=== PATIENT | female | born 1990 | race Caucasian/White ===

== ENCOUNTER 2017-05-04 13:37 | Emergency (ER) | payer OTHER, SELFPAY ==
[2017-05-04 14:00] VITALS: BP 143/98; PULSE 69; RESP 20; TEMP 36.7; O2SAT 99; BMI 28.3
--- NOTE | 2017-05-04 14:51 | HMH.EDUTC ---
[facility] [place] Disposition Clinical Impression: Sinusitis Qualifiers: Sinusitis location: unspecified location Chronicity: unspecified Qualified Code(s): J32.9 - Chronic sinusitis, unspecified Disposition: Home, Self-Care Condition on Discharge: Good Instructions: Sinusitis, Sinus Headache, DI for Sinusitis Additional Instructions: Start antibiotic. Sinus infections may take 2-3 days to notice much improvement so be sure to use conservative measures as discussed for symptoms Flonase 2 spray in each nostril daily to help with nasal congestion, sinus an ear pressure/inflammation Lots of Fluids Sleep elevated Humidifer/vaporizer Prescriptions: Doxycycline Monohydrate 100 mg PO BID #14 cap Fluticasone Propionate [Flonase 50mcg nasal spray 16gm] 2 spr NS DAILY #1 bottle Forms: Work/School Release Time of Disposition: 15:02 Medical Decision Making - Medical Records Medical records reviewed: Yes: I reviewed the patient's medical records. Vital Signs: 05/04/17 14:00 Temperature 98.1 F Temperature Source Temporal Artery Scan Pulse Rate [Brachial] 69 Respiratory Rate 20 Blood Pressure [Right Arm] 143/98 Blood Pressure Mean [Right Arm] 113 Blood Pressure Source [Right Arm] Automatic Cuff Blood Pressure Position [Right Arm] Sitting 02 Sat by Pulse Oximetry 99 Oxygen Delivery Method Room Air - Lab Data Lab results reviewed: Yes: I reviewed the patient's lab results. - Mike Inquiry Pt receiving controlled substance: No Mike was queried for this patient: No [facility] [place] HPI - General Stated complaint: sinus Mode of Arrival: Ambulatory Source of Information: Patient Limitations: No Limitations Description of Symptoms (Recalled from Triage Doc. by RN): NASAL CONGESTION SINCE Thu Symptoms (Recalled from RN notes): Yes Resp Symptoms (Recalled from RN notes): No Skin Symptoms (Recalled from RN notes): No MS Symptoms (Recalled from RN notes): No Functional Status (Recalled from RN notes): NA - History of Present Illness Provider Complaint: Patient state that she has been having sinus pain and pressure now for over a week States that she is not sure if she had a fever or not State that she has been tender under her eyes and feeling pressure State that today she has a little sinus headache so she came in to get checked out - Related Data Home Medications Medication Instructions Recorded Confirmed Escitalopram Oxalate 10 mg PO DAILY 05/04/17 05/04/17 Ethynodiol D-Ethinyl Estradiol 1 mg PO DAILY 05/04/17 05/04/17 [Kelnor 1-35 28 Tablet] Previous Rx's Medication Instructions Recorded Doxycycline Monohydrate 100 mg PO BID #14 cap 05/04/17 Fluticasone Propionate [Flonase 2 spr NS DAILY #1 bottle 05/04/17 50mcg nasal spray 16gm] Allergies Allergy/AdvReac Type Severity Reaction Status Date / Time Penicillins Allergy Intermediate Verified 05/04/17 14:04 sulfamethoxazole Allergy Intermediate Verified 05/04/17 14:05 [From Bactrim] trimethoprim [From Bactrim] Allergy Intermediate Verified 05/04/17 14:05 codeine Allergy Verified 05/04/17 14:04 - Worker's Comp Is this a Worker's Comp case?: No [facility] History I have reviewed the patient's past medical history: Yes - Social History Alcohol Intake: never - Psychiatric History Expresses thoughts of harming self/others: None Suicide Plan Description: No Plan ROS Obtained: Yes All systems reviewed & no additional complaints - ENT Ears, Nose, Mouth, and Throat: Reports sinus pain, Reports sinus pressure Physical Exam - General General appearance: alert, in no apparent distress - Expanded ENT Exam Nose exam: Present: sinus tenderness, other (tenderness noted frontal and maxillary sinus, reports thick drainage ) - Respiratory Respiratory exam: Present: normal lung sounds bilaterally. Absent: respiratory distress - Cardiovascular Cardiovascular exam: Present: regular rate, normal rhythm. Absent: JVD - Abdominal Exam Abdominal
--- NOTE | 2017-05-04 14:55 | ED_ITS ---
[facility] [place] Disposition Clinical Impression: Sinusitis Qualifiers: Sinusitis location: unspecified location Chronicity: unspecified Qualified Code (s): J32.9 - Chronic sinusitis, unspecified Disposition: Home, Self-Care Condition on Discharge: Good Instructions: Sinusitis, Sinus Headache, DI for Sinusitis Additional Instructions: Start antibiotic. Sinus infections may take 2-3 days to notice much improvement so be sure to use conservative measures as discussed for symptoms Flonase 2 spray in each nostril daily to help with nasal congestion, sinus an ear pressure/inflammation Lots of Fluids Sleep elevated Humidifer/vaporizer Prescriptions: Doxycycline Monohydrate 100 mg PO BID #14 cap Fluticasone Propionate [Flonase 50mcg nasal spray 16gm] 2 spr NS DAILY #1 bottle Forms: Work/School Release Time of Disposition: 15:02 Medical Decision Making - Medical Records Medical records reviewed: Yes: I reviewed the patient's medical records. Vital Signs: 05/04/17 14:00 Temperature 98.1 F Temperature Source Temporal Artery Scan Pulse Rate [Brachial] 69 Respiratory Rate 20 Blood Pressure [Right Arm] 143/98 Blood Pressure Mean [Right Arm] 113 Blood Pressure Source [Right Arm] Automatic Cuff Blood Pressure Position [Right Arm] Sitting 02 Sat by Pulse Oximetry 99 Oxygen Delivery Method Room Air - Lab Data Lab results reviewed: Yes: I reviewed the patient's lab results. - Mike Inquiry Pt receiving controlled substance: No Mike was queried for this patient: No [facility] [place] HPI - General Stated complaint: sinus Mode of Arrival: Ambulatory Source of Information: Patient Limitations: No Limitations Description of Symptoms (Recalled from Triage Doc. by RN): NASAL CONGESTION SINCE Thu Symptoms (Recalled from RN notes): Yes Resp Symptoms (Recalled from RN notes): No Skin Symptoms (Recalled from RN notes): No MS Symptoms (Recalled from RN notes): No Functional Status (Recalled from RN notes): NA - History of Present Illness Provider Complaint: Patient state that she has been having sinus pain and pressure now for over a week States that she is not sure if she had a fever or not State that she has been tender under her eyes and feeling pressure State that today she has a little sinus headache so she came in to get checked out - Related Data Home Medications Medication Instructions Recorded Confirmed Escitalopram Oxalate 10 mg PO DAILY 05/04/17 05/04/17 Ethynodiol D-Ethinyl Estradiol 1 mg PO DAILY 05/04/17 05/04/17 [Kelnor 1-35 28 Tablet] Previous Rx's Medication Instructions Recorded Doxycycline Monohydrate 100 mg PO BID #14 cap 05/04/17 Fluticasone Propionate [Flonase 2 spr NS DAILY #1 bottle 05/04/17 50mcg nasal spray 16gm] Allergies Allergy/AdvReac Type Severity Reaction Status Date / Time Penicillins Allergy Intermediate Verified 05/04/17 14:04 sulfamethoxazole Allergy Intermediate Verified 05/04/17 14:05 [From Bactrim] trimethoprim [From Bactrim] Allergy Intermediate Verified 05/04/17 14:05 codeine Allergy Verified 05/04/17 14:04 - Worker's Comp Is this a Worker's Comp case?: No [facility] History I have reviewed the patient's past medical history: Yes - Social History Alcohol Intake: never - Psychiatric History Expresses
[2017-05-04 15:15] VITALS: BP 143/98; PULSE 69; RESP 20; TEMP 36.7; O2SAT 99
== END 2017-05-04 15:17 | disposition home or self-care (01) ==
PROVIDERS: Emergency Provider Nurse Practitioner
DX: J32.9 Chronic sinusitis, unspecified (principal); Z88.0 Allergy status to penicillin; Z88.2 Allergy status to sulfonamides; Z88.6 Allergy status to analgesic agent
CPT/HCPCS: 99202

== ENCOUNTER → 2017-09-28 15:57 | Outpatient (CLI) | payer OTHER, SELFPAY ==
[2017-09-28 18:43] LABS: Anion Gap 11.5 mEq/L (5-15); Carbon Dioxide 28 mmol/L (21.0-32.0); Chloride 107 mmol/L (98-107); Potassium 4.5 mmoL/L (3.5-5.1); Sodium 142 mmol/L (136-145)
[2017-09-28 19:00] LABS: Alanine Aminotransferase 34 U/L (12-78); Albumin Level 3.8 gm/dL (3.4-5.0); Albumin/Globulin Ratio 1.1 (1.1-1.8); Alkaline Phosphatase 56 U/L (46-116); Aspartate Amino Transferase 26 U/L (15-37); Bilirubin,Total 0.3 mg/dL (0.2-1.0); Blood Urea Nitrogen 19 mg/dL (7-18); Calcium 8.9 mg/dL (8.5-10.1); Chol/HDL Ratio 2.8 (1-3.5); Cholesterol 187 mg/dL (140-200); Creatinine,Serum 1.03 mg/dL (0.55-1.02); Estimated Glomerular Filt Rate 65 ml/min (>60); GFR (African American) 78 ML/MIN (>60); Globulin 3.5 gm/dl (1.3-3.2); Glucose 82 mg/dL (74-106); HDL Cholesterol 68 mg/dL (29-89); LDL Cholesterol 97 mg/dL (0-130); Total Protein,Serum 7.3 gm/dL (6.4-8.2); Triglycerides 108 mg/dL (30-200); VLDL Cholesterol 22 mg/dL (0-40)
== END ==
PROVIDERS: Visit Provider Nurse Practitioner Family
DX: Z00.00 Encounter for general adult medical examination without abnormal findings (principal)
CPT/HCPCS: 36415; 80053; 80061

== ENCOUNTER → 2019-09-30 11:57 | Outpatient (CLI) | payer OTHER, SELFPAY ==
[2019-09-30 14:23] LABS: Coronavirus 19 IgG Antibody Negative (Negative); Coronavirus 19 IgM Antibody Negative (Negative)
== END ==
PROVIDERS: Visit Provider Nurse Practitioner Family
DX: Z20.828 Contact with and (suspected) exposure to other viral communicable diseases (principal)
CPT/HCPCS: 36415; 86328

== ENCOUNTER 2020-08-07 08:16 | Emergency (ER) | payer OTHER, SELFPAY ==
[2020-08-07] VITALS (7 sets, daily range): BP systolic 113–141; BP diastolic 71–98; PULSE 70–144; RESP 16–18; TEMP 36.8–37.1; O2SAT 93–98; BMI 30.2
--- NOTE | 2020-08-07 08:35 | PC.NURSE ---
notified ER of pt HR
[2020-08-07 08:40] LABS: Adenovirus F 40/41, stool Not Detected (NotDetected); Astrovirus Not Detected (NotDetected); Campylobacter Not Detected (NotDetected); Cryptosporidium Not Detected (NotDetected); Cyclospora Cayetanesis Not Detected (NotDetected); Entamoeba histolytica Not Detected (NotDetected); Enteroaggregative E coli Not Detected (NotDetected); Enteropathogenic E coli Not Detected (NotDetected); Enterotoxigenic E coli Not Detected (NotDetected); Giardia lamblia Not Detected (NotDetected); Microscopic, Urine URINE MICROSCOPIC (MICROSCOPIC); Plesimonas Shigalloides, PCR Not Detected (NotDetected); Rotavirus A Not Detected (NotDetected); Salmonella, PCR Not Detected (NotDetected); Sapovirus Not Detected (NotDetected); Shiga-like toxin E coli Not Detected (NotDetected); Shigella Enterovasive E coli Not Detected (NotDetected); Vibrio Cholerae Not Detected (NotDetected); Vibrio, PCR Not Detected (NotDetected); Yersinia Entercolitica, PCR Not Detected (NotDetected)
[2020-08-07 08:42] LABS: Appearance,Urine CLEAR (Clear); Blood, Urine 1+ (Negative); Color,Urine YELLOW (Yellow); Glucose,Urine (UA) Negative (Negative); Ketones,Urine 1+ (Negative); Leukocyte Esterase,Urine Negative (Negative); Nitrate,Urine Negative (Negative); PH,Urine 5.5 (5.0-8.5); Protein,Urine 1+ (Negative); Specific Gravity, Urine >= 1.030 (1.005-1.030); Urobilinogen,Urine 0.2 EU/dl (0.2)
[2020-08-07 08:45] LABS: Bilirubin,Urine 1+ (Negative)
--- NOTE | 2020-08-07 08:45 | HMH.EDGENADL ---
ED Disposition Clinical Impression: Vomiting and diarrhea Disposition: Home, Self-Care Condition on Discharge: Good Instructions: DI for Diarrhea and Traveler's Diarrhea -- Adult, Nausea and Vomiting-Adult Prescriptions: Vancomycin HCl 125 mg PO QID 10 Days #40 cap Transmission Status: Pending to [place] [id number] Ondansetron [Zofran 4mg ODT] 4 mg PO Q6 PRN #12 tab PRN Reason: Nausea And Vomiting Transmission Status: Received by [place] [id number] Referrals: Francie Sarmiento APRN [Primary Care Provider] - Forms: Work/School Release Time of Disposition: 10:09 - Critical Care Critical Care Time: No Attestation: On , the high probability of a clinically significant, sudden or life threatening deterioration of the following system(s) required my full and direct attention, intervention and personal management. The time I documented below is in addition to time spent performing reported procedures but includes the following listed in this critical care notation. Medical Decision Making - Medical Records Medical records reviewed: Yes: I reviewed the patient's medical records. - Mike Inquiry Pt receiving controlled substance: No Vital Signs: 08/07/20 08:17 08/07/20 08:26 08/07/20 08:30 Temperature 98.8 F Temperature Source Oral Pulse Rate 144 H 136 H Pulse Rate [Right Radial] 139 H Respiratory Rate 18 Blood Pressure 126/81 141/98 H Blood Pressure [Right Arm] 126/87 Blood Pressure Mean 97 109 Blood Pressure Mean [Right Arm] 100 Blood Pressure Source Blood Pressure Source [Right Arm] Automatic Cuff Blood Pressure Position Blood Pressure Position [Right Arm] Sitting 02 Sat by Pulse Oximetry 96 Oxygen Delivery Method Room Air 08/07/20 08:45 08/07/20 09:00 08/07/20 09:30 Temperature Temperature Source Pulse Rate 117 H 106 H 96 H Pulse Rate [Right Radial] Respiratory Rate Blood Pressure 115/83 113/71 Blood Pressure [Right Arm] Blood Pressure Mean 93 85 Blood Pressure Mean [Right Arm] Blood Pressure Source Blood Pressure Source [Right Arm] Blood Pressure Position Blood Pressure Position [Right Arm] 02 Sat by Pulse Oximetry 93 L 96 97 Oxygen Delivery Method 08/07/20 11:01 Temperature 98.3 F Temperature Source Oral Pulse Rate 70 Pulse Rate [Right Radial] Respiratory Rate 16 Blood Pressure 113/74 Blood Pressure [Right Arm] Blood Pressure Mean Blood Pressure Mean [Right Arm] Blood Pressure Source Automatic Cuff Blood Pressure Source [Right Arm] Blood Pressure Position Sitting Blood Pressure Position [Right Arm] 02 Sat by Pulse Oximetry Oxygen Delivery Method Room Air - Lab Data Lab Results 08/07/20 08:25: Urine Color Yellow, Urine Appearance Clear, Urine pH 5.5, Ur Specific [place] >= 1.030, Urine Protein 1+, Urine Glucose (UA) Negative, Urine Ketones 1+, Urine Blood 1+, Urine Nitrate Negative, Urine Bilirubin 1+ A, Urine Urobilinogen 0.2, Ur Leukocyte Esterase Negative, Urine RBC 5-10, Urine WBC 3-5, Ur Squamous Epith Cells 3-5, Urine Bacteria None 08/07/20 08:25: Stl Aeromonas (PCR) Not detected, Stl C. cayetanensis PCR Not detected, Stool Rotavirus (PCR) Not detected, Stl Adenov F 40/41 PCR Not detected, Stool Astrovirus (PCR) Not detected, Stool Campylobacter PCR Not detected, Stl C.difficile Tox PCR Detected A, Stool Cryptosporidium PCR Not detected, Stl E.coli Shiga Tox PCR Not detected, Stool E coli O157 PCR Not detected, Stl Enterotoxigenic E PCR Not detected, Stool EPEC (PCR) Not detected, Stool EAEC (PCR) Not detected, Stl E. histolytica PCR Not detected, Stool Giardia Lamblia PCR Not detected, Stool Salmonella PCR Not detected, Stool Sapovirus (PCR) Not detected, Stl P. shigelloides PCR Not detected, Stl Shigella/EIEC PCR Not detected, St Y.enterocolitica PCR Not detected, Stool Vibrio (PCR) Not detected, Stl Vibrio cholerae PCR Not detected, Stl Norovirus GI/GII PCR Detected A 08/07/20 08:30: WBC 8.6, RBC 5.08,
[2020-08-07 08:48] LABS: Urine Pregnancy, HCG Qual. Negative (Negative)
[2020-08-07 08:50] LABS: Chloride 106 mmol/L (98-107); Potassium 3.8 mmoL/L (3.5-5.1); Sodium 143 mmol/L (136-145)
[2020-08-07 08:52] LABS: Basophils % 0.1 % (0.1-2.0); Eosinophils # 0.1 K/mm3 (0.0-0.4); Hematocrit 43.8 % (37.0-47.0); Lymphocytes # 0.3 K/mm3 (0.7-4.5); Mean Corpuscular HGB Conc 34.3 g/dL (31.8-35.4); Mean Corpuscular Hemoglobin 29.6 pg (27.0-31.2); Mean Corpuscular Volume 86.2 fl (81-99); Mean Platelet Volume 7.4 fl (7.4-10.4); Monocytes # 0.3 K/mm3 (0.1-1.0); Monocytes % 3.1 % (1.7-9.3); Neutrophils # 7.9 K/mm3 (1.8-7.8); Neutrophils % 92.8 % (37.0-80.0); Platelet Count 268 K/mm3 (142-424); Red Blood Count 5.08 M/mm3 (4.20-5.40); Red Cell Distribution Width 13.6 % (11.5-17.5); White Blood Count 8.6 K/mm3 (4.8-10.8)
[2020-08-07 08:53] LABS: Alanine Aminotransferase 94 U/L (12-78); Albumin Level 5.4 g/dl (3.5-5.0); Albumin/Globulin Ratio 1.5 (1.1-1.8); Alkaline Phosphatase 98 U/L (38-126); Anion Gap 14.8 mEq/L (5-15); Aspartate Amino Transferase 66 U/L (14-36); Bilirubin,Total 0.8 mg/dl (0.2-1.3); Blood Urea Nitrogen 17 mg/dl (7-17); Calcium 9.2 mg/dl (8.4-10.2); Carbon Dioxide 26 mmol/L (22.0-30.0); Creatinine Clearance Estimated 106 mL/min (50-200); Estimated Glomerular Filt Rate 74 ml/min (>60); GFR (African American) 90 ML/MIN (>60); Globulin 3.6 g/dL (1.3-3.2); Glucose 158 mg/dl (74-100)
[2020-08-07 08:56] LABS: Lipase 115 U/L (23-300)
[2020-08-07 09:02] LABS: MANUAL DIFFERENTIAL MANUAL DIFFERENTIAL (MANUAL DIFF)
[2020-08-07 09:38] LABS: Lymphocytes % 16 % (10-50); Monocytes % 3 % (2-9); Neutrophils % 81 % (42-76); Platelet Estimate Normal; RBC Morphology Normal; Total Cells Counted 100
[2020-08-07 12:20] LABS: Clostridium Difficile A/B, PCR Detected (NotDetected); Norovirus Detected (NotDetected)
--- NOTE | 2020-08-07 14:55 | PC.NURSE ---
waiting saloon keeper back from pt, left voicemail for pt
== END 2020-08-07 11:03 | disposition home or self-care (01) ==
PROVIDERS: Emergency Provider Emergency Medicine; PCP Nurse Practitioner Family
DX: A08.11 Acute gastroenteropathy due to Norwalk agent (principal); A04.72 Enterocolitis due to Clostridium difficile, not specified as recurrent; F41.9 Anxiety disorder, unspecified; Z88.0 Allergy status to penicillin; Z88.2 Allergy status to sulfonamides
CPT/HCPCS: 80053; 81001; 81025; 83690; 85007; 85025; 87506; 96365; 96375; 99283; J2405

== ENCOUNTER 2020-09-09 10:47 | Emergency (ER) | payer OTHER, SELFPAY ==
[2020-09-09 10:50] VITALS: BP 125/85; PULSE 72; RESP 21; TEMP 37.1; O2SAT 99; BMI 29.8
--- NOTE | 2020-09-09 11:16 | HMH.EDUTC ---
[facility] [place] Dis[place] Clinical Impression: Allergic rhinitis Qualifiers: Allergic rhinitis trigger: unspecified Allergic rhinitis seasonality: unspecified Qualified Code(s): J30.9 - Allergic rhinitis, unspecified Disposition: Home, Self-Care Condition on Discharge: Good Instructions: DI for Allergic Rhinitis, Allergic Rhinitis Additional Instructions: *Monitor Temp, Over the counter Motrin or Tylenol as directed/as needed Tylenol every 4 hours and Motrin every 6 hours (as long as your family doctor has told you that you can take it) for fever or pain. and straight to ER if unable to lower temp less than 101.0 after medication given *Warm salt water gargles may help to soothe the throat *Throat Lozenges *Warm fluids like tea with honey may help to soothe the throat *Sleep elevated *Humidifier/Vaporizer *Flonase 2 sprays in each nostril daily but be aware that it may take 2-3 days before you notice improvement Your throat swab was sent for culture. Those results are typically sent to your primary care. Be sure to follow up in 2-3 days with your family doctor/primary care physician if no improvement so they can review those result and treat if necessary. If you don?t have a primary care doctor, I recommend you get one but in the mean time, you will have to return to a walk in clinic Follow up IMMEDIATELY for new or worsening symptoms or no Noticeable improvement over the next 48-72 hours. 911 for difficulty breathing or swallowing Referrals: Francie Sarmiento APRN [Primary Care Provider] - As needed Time of Disposition: 11:23 Medical Decision Making - Mike Inquiry Pt receiving controlled substance: No Mike was queried for this patient: No Vital Signs: 09/09/20 10:50 Temperature 98.8 F Temperature Source Oral Pulse Rate [Right Brachial] 72 Respiratory Rate 21 Blood Pressure [Right Arm] 125/85 Blood Pressure Mean [Right Arm] 98 Blood Pressure Source [Right Arm] Automatic Cuff Blood Pressure Position [Right Arm] Sitting 02 Sat by Pulse Oximetry 99 Oxygen Delivery Method Room Air - Lab Data Lab results reviewed: Yes: I reviewed the patient's lab results. [facility] [place] HPI - General Stated complaint: sore throat, drainage Time Seen by Provider: 09/09/20 11:16 Mode of Arrival: Ambulatory Source of Information: Patient Limitations: No Limitations Description of Symptoms (Recalled from Triage Doc. by RN): PATIENT C/O SORE THROAT, DRAINAGE, AND COUGH X 2 DAYS HEENT Symptoms (Recalled from RN notes): Yes Resp Symptoms (Recalled from RN notes): No Skin Symptoms (Recalled from RN notes): No MS Symptoms (Recalled from RN notes): No Functional Status (Recalled from RN notes): WNL - History of Present Illness Provider Complaint: Patient states that she has been having sore throat, nasal drainage and cough for several days States that she has not had a fever that she is aware of States that today she was still having runny nose and sore throat so she came in to get checked to make sure that she doesnt have strep - Related Data Home Medications Medication Instructions Recorded Confirmed Fluoxetine HCl 10 mg PO DAILY 08/07/20 09/09/20 Cetirizine HCl [Zyrtec 10mg Tab*] 10 mg PO DAILY 09/09/20 09/09/20 Allergies Allergy/AdvReac Type Severity Reaction Status Date / Time Penicillins Allergy Intermediate Verified 04/20/18 18:53 sulfamethoxazole Allergy Intermediate Verified 04/20/18 18:53 [From Bactrim] trimethoprim [From Bactrim] Allergy Intermediate Verified 04/20/18 18:53 codeine Allergy Verified 04/20/18 18:53 - Worker's Comp Is this a Worker's Comp case?: No [facility] History - Hepatitis A Screen Drug use history?: No High risk sexual behaviors?: No History of sexually transmitted infection?: No Currently employed?: No Childcare worker?: No Do you have indoor plumbing?: Yes Do you have electricity?: Yes Attestation statement:: This patient has been screened for Hepatitis A risk factors. I have re
[2020-09-09 11:23] LABS: UTC Strep Screen (Rapid) Negative (Negative)
[2020-09-09 11:25] VITALS: BP 125/85; PULSE 72; RESP 21; TEMP 37.1; O2SAT 99
== END 2020-09-09 11:28 | disposition home or self-care (01) ==
PROVIDERS: Emergency Provider Nurse Practitioner; PCP Nurse Practitioner Family
DX: J30.9 Allergic rhinitis, unspecified (principal); F41.9 Anxiety disorder, unspecified; Z88.0 Allergy status to penicillin
CPT/HCPCS: 87880

== ENCOUNTER 2020-11-11 11:05 | Emergency (ER) | payer OTHER, SELFPAY ==
[2020-11-11 11:46] VITALS: PULSE 89; RESP 18; TEMP 36.7; O2SAT 96; BMI 29.2
--- NOTE | 2020-11-11 12:04 | HMH.EDUTC ---
[facility] [place] Disposition Clinical Impression: Upper respiratory infection Qualifiers: URI type: unspecified viral URI Qualified Code(s): J06.9 - Acute upper respiratory infection, unspecified Disposition: Home, Self-Care Condition on Discharge: Good Instructions: DI for Viral Upper Respiratory Infection -- Adult Prescriptions: predniSONE [Prednisone 20mg Tab] 20 mg PO BID 5 Days #10 tab Transmission Status: Pending to [place] [id number] Referrals: Francie Sarmiento APRN [Primary Care Provider] - Time of Disposition: 12:13 Medical Decision Making - Mike Inquiry Pt receiving controlled substance: No Vital Signs: 11/11/20 11:46 Temperature 98.1 F Temperature Source Oral Pulse Rate [Left] 89 Respiratory Rate 18 02 Sat by Pulse Oximetry 96 [facility] [place] HPI - General Stated complaint: sore throat, coug, congestion, body aches Time Seen by Provider: 11/11/20 12:04 Mode of Arrival: Ambulatory Source of Information: Patient Limitations: No Limitations Description of Symptoms (Recalled from Triage Doc. by RN): pt c/o loss of voice, matted eyes, congestion, and cough. started Symptoms (Recalled from RN notes): Yes (eyes matted and congestion) Resp Symptoms (Recalled from RN notes): Yes (cough) Skin Symptoms (Recalled from RN notes): No MS Symptoms (Recalled from RN notes): No Functional Status (Recalled from RN notes): na - History of Present Illness Provider Complaint: 4-5 days of ear pain, sinus pain, losing voice, body aches. Daughter has been sick for about a week. No fever. No vomiting or diarrhea. Onset (ago): day(s) (5) Relieving factors: none Exacerbating factors: none Associated symptoms: denies other symptoms Treatments prior to arrival: none - Related Data Home Medications Medication Instructions Recorded Confirmed Fluoxetine HCl 10 mg PO DAILY 08/07/20 09/09/20 Cetirizine HCl [Zyrtec 10mg Tab*] 10 mg PO DAILY 09/09/20 09/09/20 Previous Rx's Medication Instructions Recorded predniSONE [Prednisone 20mg 20 mg PO BID 5 Days #10 tab 11/11/20 Tab] Allergies Allergy/AdvReac Type Severity Reaction Status Date / Time Penicillins Allergy Intermediate Verified 04/20/18 18:53 sulfamethoxazole Allergy Intermediate Verified 04/20/18 18:53 [From Bactrim] trimethoprim [From Bactrim] Allergy Intermediate Verified 04/20/18 18:53 codeine Allergy Verified 04/20/18 18:53 - Worker's Comp Is this a Worker's Comp case?: No [facility] History - Hepatitis A Screen Drug use history?: No High risk sexual behaviors?: No History of sexually transmitted infection?: No Currently employed?: No Childcare worker?: No Do you have indoor plumbing?: Yes Do you have electricity?: Yes Attestation statement:: This patient has been screened for Hepatitis A risk factors. I have reviewed the patient's past medical history: Yes Medical History: Reports:: Anxiety Denies:: Cancer, Diabetes Mellitus Type 1, Diabetes Mellitus Type 2, Hypertension, MRSA Other Medical History: Reports: Other (allergies) Other Surgeries: Yes: Other (wisdom teeth) Amputation: No Fractures: No - Social History Smoking Status: Never smoker Alcohol Intake: never Alcohol Intake Frequency:: holidays/special occasions only Occupational Status: other Housing: house Household Members: family - Psychiatric History Pschychiatric History:: Reports:: Anxiety ROS Obtained: Yes All systems reviewed & no additional complaints - Constitutional Constitutional: Reports body ache, Denies fever(s), Reports malaise - ENT Ears, Nose, Mouth, and Throat: Reports nasal discharge, Reports sore throat - Respiratory Respiratory: Reports cough Physical Exam - General General appearance: alert, in no apparent distress - Head Head exam: normocephalic - Eye Eye exam: Present: PERRL - ENT ENT exam: Present: normal oropharynx, TM's normal bilaterally - Neck Neck exam: Present: normal inspection. Absent: lymphade
[2020-11-11 12:13] VITALS: BP 116/79; PULSE 89; RESP 12; TEMP 36.7
== END 2020-11-11 12:23 | disposition home or self-care (01) ==
PROVIDERS: Emergency Provider Physician Assistant; PCP Nurse Practitioner Family
DX: J06.9 Acute upper respiratory infection, unspecified (principal); F41.9 Anxiety disorder, unspecified; Z88.0 Allergy status to penicillin; Z88.2 Allergy status to sulfonamides
CPT/HCPCS: 99202; G0463

== ENCOUNTER → 2020-11-14 19:58 | Outpatient (CLI) | payer OTHER, SELFPAY ==
[2020-11-14 20:24] LABS: Coronavirus 19, PCR Not Detected (NotDetected); Influenza A, PCR Not Detected (NotDetected); Influenza B, PCR Not Detected (NotDetected)
== END ==
PROVIDERS: PCP Nurse Practitioner Family; Visit Provider Nurse Practitioner
DX: Z20.822 Contact with and (suspected) exposure to COVID-19 (principal)
CPT/HCPCS: C9803; U0003; U0005

== ENCOUNTER → 2021-01-18 10:03 | Outpatient (CLI) | payer OTHER, SELFPAY ==
[2021-01-18 10:29] LABS: Basophils # 0.1 K/mm3 (0-0.2); Eosinophils # 0.1 K/mm3 (0.0-0.4); Eosinophils % 1.5 % (0.1-12.0); Hemoglobin 14.3 g/dL (12.2-16.2); Lymphocytes # 1.7 K/mm3 (0.7-4.5); Lymphocytes % 30.3 % (10-50); Mean Corpuscular HGB Conc 34.7 g/dL (31.8-35.4); Mean Corpuscular Volume 89.2 fl (81-99); Mean Platelet Volume 7.8 fl (7.4-10.4); Monocytes # 0.3 K/mm3 (0.1-1.0); Monocytes % 4.5 % (1.7-9.3); Neutrophils # 3.6 K/mm3 (1.8-7.8); Neutrophils % 62.7 % (37.0-80.0); Platelet Count 264 K/mm3 (142-424); Red Cell Distribution Width 12.7 % (11.5-17.5); White Blood Count 5.7 K/mm3 (4.8-10.8)
[2021-01-18 11:53] LABS: Alanine Aminotransferase 23 U/L (12-78); Albumin Level 4.5 g/dl (3.5-5.0); Albumin/Globulin Ratio 1.7 (1.1-1.8); Alkaline Phosphatase 70 U/L (38-126); Anion Gap 8.4 mEq/L (5-15); Aspartate Amino Transferase 39 U/L (14-36); Bilirubin,Total 0.4 mg/dl (0.2-1.3); Blood Urea Nitrogen 19 mg/dl (7-17); Calcium 8.9 mg/dl (8.4-10.2); Carbon Dioxide 33 mmol/L (22.0-30.0); Chloride 104 mmol/L (98-107); Estimated Glomerular Filt Rate 74 ml/min (>60); GFR (African American) 89 ML/MIN (>60); Globulin 2.6 g/dL (1.3-3.2); Glucose 76 mg/dl (74-100); Potassium 4.4 mmoL/L (3.5-5.1); Sodium 141 mmol/L (136-145); Total Protein,Serum 7.1 g/dl (6.3-8.2)
[2021-01-18 12:31] LABS: T4 (Thyroxine) 5.7 ug/dl (5.53-11.0); Triiodothryronine (T3) Uptake 35 % (23.5-40.5)
== END ==
PROVIDERS: Visit Provider Internal Medicine Adolescent Medicine
DX: F41.1 Generalized anxiety disorder (principal)
CPT/HCPCS: 36415; 80053; 84436; 84443; 84479; 85025

== ENCOUNTER 2021-06-16 18:32 | Emergency (ER) | payer OTHER, SELFPAY ==
[2021-06-16 19:15] VITALS: BP 131/86; PULSE 73; RESP 19; TEMP 36.9; O2SAT 99; BMI 24.2
[2021-06-16 19:31] LABS: Apearance,Urine Clear (Clear); Color,Urine Yellow (Yellow)
[2021-06-16 19:32] LABS: Bilirubin,Urine Negative (Negative); Blood, Urine 2+ (Negative); Glucose,Urine (UA) Negative (Negative); Ketones,Urine Negative (Negative); Protein,Urine Negative (Negative); Specific Gravity, Urine 1.015 (1.005-1.030); UTC Leukocyte Esterase,Urine 1+ (Negative); UTC Nitrate,Urine Negative (Negative); Urobilinogen,Urine 0.2 EU/dl (0.2)
--- NOTE | 2021-06-16 19:45 | HMH.EDUTC ---
[facility] [place] Disposition Clinical Impression: UTI (urinary tract infection) Qualifiers: Urinary tract infection type: acute cystitis Hematuria presence: without hematuria Qualified Code(s): N30.00 - Acute cystitis without hematuria Disposition: Home, Self-Care Condition on Discharge: Good Instructions: Urinary Tract Infection Additional Instructions: Increase fluids, water and not soda or tea. Can drink cranberry juice or cranberry extract. White front to back Wear cotton underwear Empty bladder after intercourse Start antibiotics immediately and make sure you take the full course although you may start to see improvement over the next 48 hours. You can eat yogurt or take probiotics to decrease diarrhea or yeast infection caused by the antibiotic Be sure to follow-up anytime for new or worsening symptoms in 48 hours for wound urine culture results be sure to let you PCP no recent urine for culture so they can request records and ensure that you have appropriate antibiotic if you are not getting better or getting worse. If symptoms worsen or do not improve return or be seen in the ER. Follow-up with primary care this week. Prescriptions: cephALEXin [Cephalexin 500mg Tab] 500 mg PO BID 7 Days #14 tab Transmission Status: Pending to [place] [id number] Referrals: Francie Sarmiento APRN [Primary Care Provider] - Time of Disposition: 19:48 Medical Decision Making - Mike Inquiry Pt receiving controlled substance: No Vital Signs: 06/16/21 19:15 Temperature 98.4 F Temperature Source Oral Pulse Rate [Right Brachial] 73 Respiratory Rate 19 Blood Pressure [Right Arm] 131/86 Blood Pressure Mean [Right Arm] 101 Blood Pressure Source [Right Arm] Automatic Cuff Blood Pressure Position [Right Arm] Sitting 02 Sat by Pulse Oximetry 99 Oxygen Delivery Method Room Air - Lab Data Lab Results 06/16/21 19:22: Urine Color Yellow, Urine Appearance Clear, Urine pH 7.0, Ur Specific [place] 1.015, Urine Protein Negative, Urine Glucose (UA) Negative, Urine Ketones Negative, Urine Blood 2+, Urine Nitrate Negative, Urine Bilirubin Negative, Urine Urobilinogen 0.2, Ur Leukocyte Esterase 1+ A Orders (Tests/Meds): ORDERS Category Date Time Status Urine Culture Stat Micro 06/16/21 19:30 Received [facility] [place] HPI - General Chief complaint: Urgent Treatment Center Stated complaint: Possible UTI Time Seen by Provider: 06/16/21 19:45 Mode of Arrival: Ambulatory Source of Information: Patient Limitations: No Limitations Description of Symptoms (Recalled from Triage Doc. by RN): PATIENT C/O RIGHT SIDE, LOWER BACK AND PELVIC PAIN AND PAIN WITH URINATION X 2-3 DAYS HEENT Symptoms (Recalled from RN notes): No Resp Symptoms (Recalled from RN notes): No Skin Symptoms (Recalled from RN notes): No MS Symptoms (Recalled from RN notes): No Functional Status (Recalled from RN notes): WNL - History of Present Illness Provider Complaint: 30 yr old female presnets for low back pain, urinary freq, urgency,pain and hes for 3 days - Related Data Home Medications Medication Instructions Recorded Confirmed Fluoxetine HCl 10 mg PO DAILY 08/07/20 09/09/20 Cetirizine HCl [Zyrtec 10mg Tab*] 10 mg PO DAILY 09/09/20 09/09/20 Previous Rx's Medication Instructions Recorded predniSONE [Prednisone 20mg 20 mg PO BID 5 Days #10 tab 11/11/20 Tab] cephALEXin [Cephalexin 500mg Tab] 500 mg PO BID 7 Days #14 tab 06/16/21 Allergies Allergy/AdvReac Type Severity Reaction Status Date / Time Penicillins Allergy Intermediate Verified 04/20/18 18:53 sulfamethoxazole Allergy Intermediate Verified 04/20/18 18:53 [From Bactrim] trimethoprim [From Bactrim] Allergy Intermediate Verified 04/20/18 18:53 codeine Allergy Verified 04/20/18 18:53 - Worker's Comp Is this a Worker's Comp case?: No H History - Hepatitis A Screen Drug use history?: No High risk sexual behaviors?: No History of sexually transmitted infection?: No Current
[2021-06-16 19:48] VITALS: BP 131/86; PULSE 73; RESP 19; TEMP 36.9; O2SAT 99
== END 2021-06-16 19:53 | disposition home or self-care (01) ==
PROVIDERS: Emergency Provider Nurse Practitioner Family; PCP Nurse Practitioner Family
DX: N30.00 Acute cystitis without hematuria (principal); M54.50 Low back pain, unspecified; F41.9 Anxiety disorder, unspecified; Z79.52 Long term (current) use of systemic steroids; Z88.0 Allergy status to penicillin; Z88.2 Allergy status to sulfonamides; Z88.5 Allergy status to narcotic agent; Z88.8 Allergy status to other drugs, medicaments and biological substances
CPT/HCPCS: 81003; 87086; 87088; 87186; 99213; G0463

== ENCOUNTER 2021-11-26 19:19 | Emergency (ER) | payer OTHER, SELFPAY ==
[2021-11-26 19:40] VITALS: BP 123/80; PULSE 76; RESP 19; TEMP 36.8; O2SAT 98; BMI 23.8
--- NOTE | 2021-11-26 20:20 | EXP.UTC ---
Discharge Plan Disposition Patient Disposition: Home, Self-Care Condition: Good Prescriptions Prescriptions: No Action fluoxetine 10 MG capsule 10 mg PO DAILY prednisone 20 MG tablet 20 mg PO BID 5 Days Qty: 10 0RF cephalexin 500 MG tablet 500 mg PO BID 7 Days Qty: 14 0RF clindamycin HCl 300 MG capsule 300 mg PO Q8H 7 Days Qty: 21 0RF cetirizine 10 MG tablet 10 mg PO DAILY Referrals Follow up/Referrals: Francie Sarmiento APRN [Primary Care Provider] - See instructions Activity Restrictions/Add. Instructions Additional Instructions/Restrictions: Make sure to follow up with your Family Doctor for results in the next 7 days Follow up with your Family Doctor for further evaluation and testing Return if needed Straight to ER if any worsening of symptoms Clinical Impressions Clinical Impression: Abdominal bloating Instructions Patient Instructions: Indigestion, Helicobacter Pylori Infection Discharge ED Provider: Melody Ramos [facility] [place] HPI General Stated complaint: stomach ache Mode of Arrival: Ambulatory Source of Information: Patient Limitations: No Limitations Time Seen by Provider: 11/26/21 20:20 Description of Symptoms (Recalled from Triage Doc. by RN): PATIENT C/O LUQ PAIN, INDIGESTION AND GAS X 10 DAYS HEENT Symptoms (Recalled from RN notes): No Resp Symptoms (Recalled from RN notes): No Skin Symptoms (Recalled from RN notes): No MS Symptoms (Recalled from RN notes): No Functional Status (Recalled from RN notes): WNL History of Present Illness Provider Complaint: Patient states that she has been having indigestion like pain in her upper abdomen left side on and off for about 10 days States that she has been burping a lot a little nausea here and there and thought it may have been IBS or something States that she had a good BM around 4pm today States that she isnt having any pain right now but wanted to come in and just get it looked at Related Data Home Medications Medication Instructions Recorded Confirmed fluoxetine 10 mg capsule 10 mg PO DAILY Depression 08/07/20 09/09/20 cetirizine 10 mg tablet 10 mg PO DAILY Allergy symptoms 09/09/20 09/09/20 Previous Rx's Medication Instructions Recorded prednisone 20 mg tablet 20 mg PO BID 5 days #10 tabs 11/11/20 cephalexin 500 mg tablet 500 mg PO BID 7 days #14 tabs 06/16/21 clindamycin HCl 300 mg capsule 300 mg PO Q8H 7 days #21 caps 06/20/21 Allergies Allergy/AdvReac Type Severity Reaction Status Date / Time Penicillins Allergy Intermediate Verified 04/20/18 18:53 sulfamethoxazole Allergy Intermediate Verified 04/20/18 18:53 [From Bactrim] trimethoprim [From Bactrim] Allergy Intermediate Verified 04/20/18 18:53 codeine Allergy Verified 04/20/18 18:53 Sulfa (Sulfonamide Allergy Verified 11/26/21 19:56 Antibiotics) Worker's Comp Is this a Worker's Comp case?: No PFSH PFSH Medical History (Updated 11/26/21 @ 21:00 by Melody Ramos APRN) Anxiety Urinary tract infection Surgical History (Updated 11/26/21 @ 19:55 by Jessica Spears RN) History of wisdom tooth extraction Social History Smoking Status: Never smoker alcohol intake: never current occupational status: other Travel in the last 8 weeks: None household members: family housing: house ROS Obtained: Yes All systems reviewed & no additional complaints except as documented and Yes Systems reviewed as appropriate & no additional complaints except as documented Constitutional Constitutional: Reports system reviewed and no additional complaints, except as documented and Reports as per HPI Cardiovascular Cardiovascular: Reports system reviewed and no additional complaints, except as documented and Reports as per HPI Respiratory Respiratory: Reports system reviewed and no additional complaints, except as documented and Reports as per HPI Gastrointestinal Gastrointestingal
[2021-11-26 21:01] VITALS: BP 123/80; PULSE 76; RESP 19; TEMP 36.8; O2SAT 98
[2021-11-28 18:07] LABS: H. pylori Breath Test Negative (Negative)
== END 2021-11-26 21:06 | disposition home or self-care (01) ==
PROVIDERS: Emergency Provider Nurse Practitioner; PCP Nurse Practitioner Family
DX: R10.12 Left upper quadrant pain (principal); R11.0 Nausea; Z79.52 Long term (current) use of systemic steroids; Z79.899 Other long term (current) drug therapy; Z88.0 Allergy status to penicillin; Z88.2 Allergy status to sulfonamides; Z88.5 Allergy status to narcotic agent; Z88.8 Allergy status to other drugs, medicaments and biological substances
CPT/HCPCS: 83013; 99213; G0463

== ENCOUNTER 2022-01-25 13:40 | Emergency (ER) | payer OTHER, SELFPAY ==
[2022-01-25] VITALS (7 sets, daily range): BP systolic 112–140; BP diastolic 66–88; PULSE 74–102; RESP 16–18; TEMP 36.8; O2SAT 97–100; BMI 27.3
[2022-01-25 16:11] LABS: Microscopic, Urine URINE MICROSCOPIC (MICROSCOPIC)
[2022-01-25 16:19] LABS: Basophils % 0.4 % (0.1-2.0); Eosinophils # 0.1 K/mm3 (0.0-0.4); Hematocrit 43.3 % (37.0-47.0); Lymphocytes # 0.8 K/mm3 (0.7-4.5); Mean Corpuscular HGB Conc 32.4 g/dL (31.8-35.4); Mean Corpuscular Hemoglobin 29.5 pg (27.0-31.2); Mean Corpuscular Volume 91.2 fl (81-99); Mean Platelet Volume 7.3 fl (7.4-10.4); Monocytes # 0.3 K/mm3 (0.1-1.0); Monocytes % 5.7 % (1.7-9.3); Neutrophils # 4.4 K/mm3 (1.8-7.8); Neutrophils % 78.9 % (37.0-80.0); Platelet Count 227 K/mm3 (142-424); Red Blood Count 4.75 M/mm3 (4.20-5.40); Red Cell Distribution Width 12.3 % (11.5-17.5); White Blood Count 5.6 K/mm3 (4.8-10.8)
[2022-01-25 16:22] LABS: Chloride 103 mmol/L (98-107); Potassium 3.6 mmoL/L (3.5-5.1); Sodium 137 mmol/L (136-145)
[2022-01-25 16:24] LABS: Blood Urea Nitrogen 12 mg/dl (7-17); Creatinine Clearance Estimated 106 mL/min (50-200); Estimated Glomerular Filt Rate 84 ml/min (>60); GFR (African American) 101 ML/MIN (>60)
[2022-01-25 16:25] LABS: Alanine Aminotransferase 21 U/L (12-78); Albumin Level 4.4 g/dl (3.5-5.0); Albumin/Globulin Ratio 1.4 (1.1-1.8); Alkaline Phosphatase 73 U/L (38-126); Anion Gap 10.6 mEq/L (5-15); Aspartate Amino Transferase 35 U/L (14-36); Bilirubin,Total 0.8 mg/dl (0.2-1.3); Calcium 8.6 mg/dl (8.4-10.2); Carbon Dioxide 27 mmol/L (22.0-30.0); Globulin 3.1 g/dL (1.3-3.2); Glucose 97 mg/dl (74-100); Lipase 49 U/L (23-300); Total Protein,Serum 7.5 g/dl (6.3-8.2)
[2022-01-25 16:26] LABS: Appearance,Urine CLEAR (Clear); Blood, Urine TRACE-I (Negative); Color,Urine DK YELLOW (Yellow); Glucose,Urine (UA) Negative (Negative); Ketones,Urine 1+ (Negative); Leukocyte Esterase,Urine Negative (Negative); Nitrate,Urine Negative (Negative); Protein,Urine Negative (Negative); Specific Gravity, Urine 1.025 (1.005-1.030); Urobilinogen,Urine 0.2 EU/dl (0.2)
[2022-01-25 16:44] LABS: Bilirubin,Urine 1+ (Negative)
[2022-01-25 16:51] LABS: Bacteria,Urine 1+ /lpf; WBC,Urine Occasional #/hpf (0-3)
--- NOTE | 2022-01-25 17:53 | PC.NURSE ---
CARLO SHEPHERD at
--- NOTE | 2022-01-25 17:59 | HMH.EDGENADL ---
Discharge Plan Disposition Patient Disposition: Home, Self-Care Condition: Good Prescriptions Prescriptions: New ondansetron 4 mg tablet,disintegrating 4 mg PO Q8H PRN (Reason: nausea and vomiting) Qty: 7 0RF No Action fluoxetine 10 MG capsule 10 mg PO DAILY prednisone 20 MG tablet 20 mg PO BID 5 Days Qty: 10 0RF cephalexin 500 MG tablet 500 mg PO BID 7 Days Qty: 14 0RF clindamycin HCl 300 MG capsule 300 mg PO Q8H 7 Days Qty: 21 0RF cetirizine 10 MG tablet 10 mg PO DAILY Referrals Follow up/Referrals: Francie Sarmiento APRN [Primary Care Provider] - See instructions Activity Restrictions/Add. Instructions Additional Instructions/Restrictions: Zofran as needed for nausea and vomiting. Collect a diarrhea sample using the provided supplies and return it along with the order form to ER registration at [facility] for testing. Obtain the results of this test from your primary care provider the next day. Additional instructions for VOMITING/DIARRHEA: See your physician as soon as possible for further evaluation. Drink plenty of fluids. Return immediately if severe abdominal pain, uncontrollable vomiting, shortness of breath, fever, bloody diarrhea, vomiting of blood or abdominal distention. Clinical Impressions Clinical Impression: Gastroenteritis Instructions Patient Instructions: DI for Diarrhea and Traveler's Diarrhea -- Adult, DI for Nausea -- Adult, DI for Viral Gastroenteritis -- Adult Discharge ED Provider: Matteo Morin Adult HPI General Chief complaint: Nausea/Vomiting/Diarrhea Stated complaint: abd pain, vomiting, diarrhea Time Seen by Provider: 01/25/22 17:51 Mode of Arrival: Ambulatory Source of Information: Patient Limitations: No Limitations Description of Symptoms (Recalled from ER Triage Doc. by RN): pt to ed c/o n/v/d. pt reports some mild abd pain last night. pt states she sees a GI physician in [place]. History of Present Illness HPI narrative: Complains of abdominal pain, vomiting, diarrhea. States that she developed bad abdominal pain yesterday. Primarily epigastric going down across her lower abdomen. She had an episode of vomiting last night. She has had some diarrhea without blood. No fever. She is only drank 6 ounces of fluid today and has decreased urinary output. She is concerned about the possibility of appendicitis or gallbladder problems. Related Data Home Medications Medication Instructions Recorded Confirmed fluoxetine 10 mg capsule 10 mg PO DAILY Depression 06/08/21 07/11/21 cetirizine 10 mg tablet 10 mg PO DAILY Allergy symptoms 09/09/20 09/09/20 Previous Rx's Medication Instructions Recorded prednisone 20 mg tablet 20 mg PO BID 5 days #10 tabs 11/11/20 cephalexin 500 mg tablet 500 mg PO BID 7 days #14 tabs 06/16/21 clindamycin HCl 300 mg capsule 300 mg PO Q8H 7 days #21 caps 06/20/21 ondansetron 4 mg disintegrating 4 mg PO Q8H PRN nausea and 01/25/22 tablet vomiting #7 tabs Allergies Allergy/AdvReac Type Severity Reaction Status Date / Time Penicillins Allergy Intermediate Verified 04/20/18 18:53 sulfamethoxazole Allergy Intermediate Verified 04/20/18 18:53 [From Bactrim] trimethoprim [From Bactrim] Allergy Intermediate Verified 04/20/18 18:53 codeine Allergy Verified 04/20/18 18:53 Sulfa (Sulfonamide Allergy Verified 11/26/21 19:56 Antibiotics) PFSH PFS Medical History (Updated 01/25/22 @ 19:48 by Matteo Morin MD) Anxiety Urinary tract infection Surgical History (Updated 11/26/21 @ 19:55 by Jessica Spears RN) History of wisdom tooth extraction Social History Smoking Status: Never smoker alcohol intake: never current occupational status: other Travel in the last 8 weeks: None household members: family housing: house ROS Obtained: Yes Systems reviewed as appropriate & no additional complaints except as d
--- NOTE | 2022-01-25 18:03 | CT_ITS ---
PROCEDURE INFORMATION: Exam: CT Abdomen And Pelvis Without Contrast Exam date and time: 01/25/2022 6:39 PM Age: 31 years old Clinical indication: Patient HX: Vomiting, and dirrhea; Additional info: Abdo pain. , does not want contrast TECHNIQUE: Imaging protocol: Computed tomography of the abdomen and pelvis without contrast. Radiation optimization: All CT scans at this facility use at least one of these dose optimization techniques: automated exposure control; mA and/or kV adjustment per patient size (includes targeted exams where dose is matched to clinical indication); or iterative reconstruction. COMPARISON: No relevant prior studies available. FINDINGS: Lungs: No acute findings in the visualized lower lungs. No consolidation. Liver: The liver is normal. Gallbladder and bile ducts: The gallbladder is unremarkable. No calcified stones or biliary dilatation. Pancreas: The pancreas is normal. Spleen: The spleen is normal. Adrenal glands: The adrenal glands are normal. Kidneys and ureters: The kidneys are normal. The ureters are normal. Stomach and bowel: The stomach is normal. Prominent fluid distention of small bowel loops, with scattered air-fluid levels. No significantly dilated loops or mucosal thickening. There is liquid stool in the proximal colon with air-fluid levels, but no dilated colonic loops or significant mucosal thickening. Appendix: No findings of appendicitis. Intraperitoneal space: There is no significant free intraperitoneal fluid. There is no free intraperitoneal air. Vasculature: Unremarkable. No abdominal aortic aneurysm. Lymph nodes: No significantly enlarged lymph nodes by short axis criteria. Urinary bladder: Urinary bladder is unremarkable for the degree of distension. No wall thickening. No calcified stones. Reproductive: Uterus and adnexa are unremarkable for age. Bones/joints: There is no evidence of acute fracture. There is a left side L5 pars defect which appears chronic, with no significant listhesis. Very mild multilevel disc narrowing, minimal spondylosis. Soft tissues: Very dense bilateral breast tissue consistent with the clinical history of .There are no soft tissue masses or loculated fluid collections, as visualized. Calcified injection granuloma in the right buttock. IMPRESSION: 1. Correlate for enterocolitis versus other diarrheal disease; liquid stool in the proximal colon, fluid distention of distal small bowel, and scattered large and small intestinal air-fluid levels. No significantly dilated loops or mucosal thickening.There is no evidence of intestinal perforation or obstruction. 2. Incidental left L5 spondylolysis. No acute appearing fracture or high-grade listhesis. 3. Additional nonemergency and chronic findings as above.
--- NOTE | 2022-01-25 18:03 | PC.NURSE ---
notified rad of CT order
--- NOTE | 2022-01-25 18:05 | PC.NURSE ---
notified lab of new orders, spoke with martin
[2022-01-25 18:27] LABS: HCG Qualitative, Serum Negative (Negative)
--- NOTE | 2022-01-25 18:32 | PC.NURSE ---
resulted. CT notified
--- NOTE | 2022-01-25 19:40 | PC.NURSE ---
Pt updated that scan results are back and the MD should be in shortly
== END 2022-01-25 20:06 | disposition home or self-care (01) ==
PROVIDERS: Emergency Provider Emergency Medicine; PCP Nurse Practitioner Family
DX: K52.9 Noninfective gastroenteritis and colitis, unspecified (principal)
CPT/HCPCS: 74176; 80053; 81001; 83690; 84703; 85025; 99284

== ENCOUNTER → 2022-01-25 21:20 | Outpatient (CLI) | payer OTHER, SELFPAY ==
[2022-01-25 21:30] LABS: Adenovirus F 40/41, stool Not Detected (NotDetected); Astrovirus Not Detected (NotDetected); Campylobacter Not Detected (NotDetected); Clostridium Difficile A/B, PCR Not Detected (NotDetected); Cryptosporidium Not Detected (NotDetected); Cyclospora Cayetanesis Not Detected (NotDetected); Entamoeba histolytica Not Detected (NotDetected); Enteroaggregative E coli Not Detected (NotDetected); Enteropathogenic E coli Not Detected (NotDetected); Enterotoxigenic E coli Not Detected (NotDetected); Giardia lamblia Not Detected (NotDetected); Norovirus Not Detected (NotDetected); Plesimonas Shigalloides, PCR Not Detected (NotDetected); Rotavirus A Not Detected (NotDetected); Salmonella, PCR Not Detected (NotDetected); Shiga-like toxin E coli Not Detected (NotDetected); Shigella Enterovasive E coli Not Detected (NotDetected); Vibrio Cholerae Not Detected (NotDetected); Vibrio, PCR Not Detected (NotDetected); Yersinia Entercolitica, PCR Not Detected (NotDetected)
[2022-01-25 23:19] LABS: Sapovirus Detected (NotDetected)
== END ==
PROVIDERS: PCP Emergency Medicine; Visit Provider Emergency Medicine
DX: K52.89 Other specified noninfective gastroenteritis and colitis (principal); A08.11 Acute gastroenteropathy due to Norwalk agent
CPT/HCPCS: 87506

== ENCOUNTER 2022-11-30 09:13 | Emergency (ER) | payer OTHER, SELFPAY ==
[2022-11-30 09:35] VITALS: BP 119/82; PULSE 91; RESP 18; TEMP 37; O2SAT 98; BMI 26.7
--- NOTE | 2022-11-30 09:51 | EXP.UTC ---
Discharge Plan Disposition Patient Disposition: Home, Self-Care Condition: Good Prescriptions Prescriptions: New dicyclomine 10 mg capsule 10 mg PO TID PRN (Reason: abdominal pain/cramping) Qty: 15 0RF No Action fluoxetine 10 MG capsule 10 mg PO DAILY cetirizine 10 MG tablet 10 mg PO DAILY Referrals Follow up/Referrals: Frnacie Boo APRN [Primary Care Provider] - See instructions Activity Restrictions/Add. Instructions Additional Instructions/Restrictions: Drink extra fluids with and between meals. If you have difficulty drinking, try very small amounts of water or suck on ice chips. ? Avoid fruit juices, as these do not replace minerals and can actually increase diarrhea. ? Children and adults can use sports drinks to replenish electrolytes. Younger children and infants should use products formulated for children, like oral rehydration solutions. ? Eat food in small amounts and let your stomach recover. ? Get lots of rest. You may feel tired or weak. ? No greasy or fried foods for the next 24-48 hours BRAT diet Bananas Rice Apples and [place] ? Make sure to drink plenty of liquids ? Return if needed ? Straight to ER if any life threatening symptoms ? You was given an outpatient order for diarrhea panel, please collect specimen and bring back to outpatient lab then call back to the [facility] or follow up with family doctor for results ? Follow up with family doctor in the next 48-72 hours if no improvement or any worsening of symptoms Clinical Impressions Clinical Impression: Viral syndrome Instructions Patient Instructions: Diarrhea, DI for Viral Syndrome Discharge ED Provider: Melody Ramos [facility] [place] HPI General Stated complaint: diarrhea, fever Mode of Arrival: Ambulatory Source of Information: Patient Limitations: No Limitations Time Seen by Provider: 11/30/22 09:51 Description of Symptoms (Recalled from Triage Doc. by RN): PATIENT C/O DIARRHEA, FEVER, AND STOMACH CRAMPS THAT STARTED THURSDAY HEENT Symptoms (Recalled from RN notes): No Resp Symptoms (Recalled from RN notes): No Skin Symptoms (Recalled from RN notes): No MS Symptoms (Recalled from RN notes): No Functional Status (Recalled from RN notes): WNL History of Present Illness Provider Complaint: Patient states that she thinks she has a stomach bug or virus States that she started on Thu with low grade fever and diarrhea States that since then her fever has stopped but she is still having some diarrhea and cramping States that this morning she had a couple episodes of diarrhea so she came in to get checked Related Data Home Medications Medication Instructions Recorded Confirmed fluoxetine 10 mg capsule 10 mg PO DAILY Depression 08/07/20 11/30/22 cetirizine 10 mg tablet 10 mg PO DAILY Allergy symptoms 09/09/20 11/30/22 Previous Rx's Medication Instructions Recorded dicyclomine 10 mg capsule 10 mg PO TID PRN abdominal 11/30/22 pain/cramping #15 caps Allergies Allergy/AdvReac Type Severity Reaction Status Date / Time Penicillins Allergy Intermediate Verified 04/20/18 18:53 sulfamethoxazole Allergy Intermediate Verified 04/20/18 18:53 [From Bactrim] trimethoprim [From Bactrim] Allergy Intermediate Verified 04/20/18 18:53 codeine Allergy Verified 04/20/18 18:53 Sulfa (Sulfonamide Allergy Verified 11/26/21 19:56 Antibiotics) Worker's Comp Is this a Worker's Comp case?: No [facility] Disclaimer: The information contained in this section may have been updated after the patient was seen, as this information can be updated by other users. Medical History (Updated 11/30/22 @ 10:04 by Melody Ramos APRN) Anxiety Urinary tract infection Surgical History (Updated 11/26/21 @ 19:55 by Jessica Spears RN) History of wisdom tooth extraction Social History (Reviewed 11/26/21 @ 19:55 by Jessica Spears,
[2022-11-30 10:08] VITALS: BP 119/82; PULSE 91; RESP 18; TEMP 37; O2SAT 98
[2022-11-30 12:58] LABS: Adenovirus F 40/41, stool Not Detected (NotDetected); Astrovirus Not Detected (NotDetected); Campylobacter Not Detected (NotDetected); Clostridium Difficile A/B, PCR Not Detected (NotDetected); Cryptosporidium Not Detected (NotDetected); Cyclospora Cayetanesis Not Detected (NotDetected); Entamoeba histolytica Not Detected (NotDetected); Enteroaggregative E coli Not Detected (NotDetected); Enteropathogenic E coli Not Detected (NotDetected); Enterotoxigenic E coli Not Detected (NotDetected); Giardia lamblia Not Detected (NotDetected); Norovirus Not Detected (NotDetected); Plesimonas Shigalloides, PCR Not Detected (NotDetected); Rotavirus A Not Detected (NotDetected); Salmonella, PCR Not Detected (NotDetected); Sapovirus Not Detected (NotDetected); Shigella Enterovasive E coli Not Detected (NotDetected); Vibrio Cholerae Not Detected (NotDetected); Vibrio, PCR Not Detected (NotDetected); Yersinia Entercolitica, PCR Not Detected (NotDetected)
[2022-11-30 15:05] LABS: Shiga-like toxin E coli Detected (NotDetected)
== END 2022-11-30 10:09 | disposition home or self-care (01) ==
PROVIDERS: Emergency Provider Nurse Practitioner; PCP Nurse Practitioner Family
DX: B96.21 Shiga toxin-producing Escherichia coli [E. coli] [STEC] O157 as the cause of diseases classified elsewhere (principal); R19.7 Diarrhea, unspecified; F41.9 Anxiety disorder, unspecified
CPT/HCPCS: 87507; 99212; 99214; G0463

== ENCOUNTER 2023-07-26 10:32 | Emergency (ER) | payer OTHER, SELFPAY ==
[2023-07-26 12:00] VITALS: BP 125/86; PULSE 78; RESP 18; TEMP 36.8; O2SAT 98; BMI 26.7
--- NOTE | 2023-07-26 12:24 | EXP.UTC ---
Discharge Plan Disposition Patient Disposition: Home, Self-Care Condition: Good Prescriptions Prescriptions: No Action fluoxetine 10 MG capsule 10 mg PO DAILY cetirizine 10 MG tablet 10 mg PO DAILY dicyclomine 10 mg capsule 10 mg PO TID PRN (Reason: abdominal pain/cramping) Qty: 15 0RF Referrals Follow up/Referrals: Francie Boo APRN [Primary Care Provider] - See instructions Activity Restrictions/Add. Instructions Additional Instructions/Restrictions: No sign of a bacterial infection. Likely viral. Viruses can take 7-14 days to run their course. Nasal saline and bulb syringe or nose Erika to remove nasal drainage to help with nasal congestion. Hard to eat, drink, sleep with nasal congestion so important to keep this cleaned out. Monitor temp. Tylenol or Motrin as needed for pain or fever Encourage fluids, water, Gatorade, Powerade, Pedialyte if /toddler/child Warm salt water gargles Warm fluids Sore throat lozenges Sleep elevated Humidifier/vaporizer Follow-up immediately for new or worsening symptoms or no noticeable improvement over the next 48-72 hours. Clinical Impressions Clinical Impression: Viral upper respiratory illness Instructions Patient Instructions: DI for Viral Upper Respiratory Infection -- Adult Discharge ED Provider: Teresa ([facility])Saima [facility] [place] HPI General Stated complaint: cough, congestion Mode of Arrival: Ambulatory Source of Information: Patient Limitations: No Limitations Time Seen by Provider: 07/26/23 12:24 Description of Symptoms (Recalled from Triage Doc. by RN): Pt's symptoms are sinus congestion, and cough. HEENT Symptoms (Recalled from RN notes): Yes Resp Symptoms (Recalled from RN notes): No Skin Symptoms (Recalled from RN notes): No MS Symptoms (Recalled from RN notes): No Functional Status (Recalled from RN notes): n/a History of Present Illness Provider Complaint: 32 yr old female presents for c/o sinus congestion, and cough. Related Data Home Medications Medication Instructions Recorded Confirmed fluoxetine 10 mg capsule 10 mg PO DAILY Depression 08/07/20 07/26/23 cetirizine 10 mg tablet 10 mg PO DAILY Allergy symptoms 09/09/20 07/26/23 Previous Rx's Medication Instructions Recorded dicyclomine 10 mg capsule 10 mg PO TID PRN abdominal 11/30/22 pain/cramping #15 caps Allergies Allergy/AdvReac Type Severity Reaction Status Date / Time Penicillins Allergy Intermediate Verified 07/26/23 12:14 sulfamethoxazole Allergy Intermediate Verified 07/26/23 12:14 [From Bactrim] trimethoprim [From Bactrim] Allergy Intermediate Verified 07/26/23 12:14 codeine Allergy Verified 07/26/23 12:14 Sulfa (Sulfonamide Allergy Verified 07/26/23 12:14 Antibiotics) Worker's Comp Is this a Worker's Comp case?: No [facility] Disclaimer: The information contained in this section may have been updated after the patient was seen, as this information can be updated by other users. Medical History , POISER) Urinary tract infection Anxiety Surgical History , POISER) History of wisdom tooth extraction Social History , POISER) Smoking Status: Never smoker alcohol intake: never current occupational status: other Travel in the last 8 weeks: None household members: family housing: house ROS Obtained: Yes All systems reviewed & no additional complaints except as documented Constitutional Constitutional: Reports system reviewed and no additional complaints, except as documented and Reports as per HPI Eyes Eyes: Reports system reviewed and no additional complaints, except as documented ENT Ears, Nose, Mouth, and Throat: Reports system reviewed and no additional complaints, except as documented, Reports nasal congestion and Reports post nasal drip Cardiovascular Cardiovascular: Reports system reviewed and no additional complaints, except as documented Respiratory Respiratory: Reports system reviewed and no additional complaints, except as documented, Reports as per HPI and Reports cough Musculoskeletal Musculoskeletal: Reports system reviewed and no additional complaints, except as documented Integumentary/Breasts Skin/Breast: Reports system reviewed and no additional complaints, except as documented Neurologic Neurologic: Reports system reviewed and no additional complaints, except as documented Endocrine Endocrine: Reports system reviewed and no additional complaints, except as documented Allergic/Immunologic Allergic/Immunologic: Reports system reviewed and no additional complaints, except as documented Physical Exam General General appearance: alert and in no apparent distress Head Head exam: atraumatic Eye Eye exam: Present normal appearance ENT ENT exam: Present normal exam, normal oropharynx, mucous membranes moist and TM's normal bilaterally Respiratory Respiratory exam: Present normal lung sounds bilaterally Cardiovascular Cardiovascular exam: Present regular rate and normal rhythm Neurological Exam Neurological exam: Present alert and oriented X3 Skin Skin exam: Present warm and intact Medical Decision Making Medical Records Medical records reviewed: Yes I reviewed the patient's medical records. Mike Inquiry Pt receiving controlled substance: No Mike was queried for this patient: No Vital Signs: 07/26/23 12:00 Temperature 98.3 F Temperature Source Oral Pulse Rate [Right Radial] 78 Respiratory Rate 18 Blood Pressure [Right Arm] 125/86 Blood Pressure Mean [Right Arm] 99 Blood Pressure Source [Right Arm] Automatic Cuff Blood Pressure Position [Right Arm] Sitting 02 Sat by Pulse Oximetry 98 Oxygen Delivery Method Room Air Orders (Tests/Meds): ORDERS Category Date Time Status Full Resp Panel w/COVID ([facility]) Routine Lab 07/26/23 12:20 Received
[2023-07-26 12:25] LABS: Adenovirus,PCR Not Detected (NotDetected); Bordetella Pertussis Not Detected (NotDetected); Chlamydophila Pneumoniae, PCR Not Detected (NotDetected); Coronavirus 19, PCR Not Detected (NotDetected); Coronavirus 229E Not Detected (NotDetected); Coronavirus NL63 Not Detected (NotDetected); Coronavirus OC43 Not Detected (NotDetected); Coronovirus HKU1,PCR Not Detected (NotDetected); Human Metapneumovirus Not Detected (NotDetected); Influenza A, PCR Not Detected (NotDetected); Influenza AH1, 2009 Not Detected (NotDetected); Influenza AH1, PCR Not Detected (NotDetected); Influenza AH3,PCR Not Detected (NotDetected); Influenza B, PCR Not Detected (NotDetected); Mycoplasma Pneumoniae, PCR Not Detected (NotDetected); Parainfluenza 1, PCR Not Detected (NotDetected); Parainfluenza 2, PCR Not Detected (NotDetected); Parainfluenza 3, PCR Not Detected (NotDetected); Parainfluenza 4, PCR Not Detected (NotDetected); Respiratory Syncytial Virus Not Detected (NotDetected)
[2023-07-26 13:08] VITALS: BP 125/86; PULSE 78; RESP 18; TEMP 36.8; O2SAT 98
[2023-07-26 15:04] LABS: Rhinovirus/Enterovirus Detected (NotDetected)
== END 2023-07-26 13:08 | disposition home or self-care (01) ==
PROVIDERS: Emergency Provider Nurse Practitioner Family; PCP Nurse Practitioner Family
DX: R05.9 Cough, unspecified (principal); B34.1 Enterovirus infection, unspecified; J06.9 Acute upper respiratory infection, unspecified; R09.81 Nasal congestion
CPT/HCPCS: 87581; 87632; 87635; 87798; 99212; 99213; G0463

== ENCOUNTER 2024-01-01 08:23 | Emergency (ER) | payer OTHER, SELFPAY ==
[2024-01-01 08:30] VITALS: BP 113/89; PULSE 99; RESP 20; TEMP 37; O2SAT 99; BMI 27.1
--- NOTE | 2024-01-01 08:36 | EXP.UTC ---
Discharge Plan Disposition Patient Disposition: Home, Self-Care Condition: Good Prescriptions Prescriptions: New ondansetron 4 mg Tablet,Disintegrating 4 mg PO Q8H PRN (Reason: Nausea) Qty: 12 0RF No Action fluoxetine 10 MG capsule 10 mg PO DAILY cetirizine 10 MG tablet 10 mg PO DAILY Referrals Follow up/Referrals: Jace Truong MD [Primary Care Provider] - See instructions Activity Restrictions/Add. Instructions Additional Instructions/Restrictions: Drink plenty of fluids. Take tylenol or ibuprofen for pain or fever. Take the medications as directed. Follow up with your regular doctor. GO TO THE ER FOR ANY WORSENING SYMPTOMS Clinical Impressions Clinical Impression: Gastroenteritis, Diarrhea Instructions Patient Instructions: Viral Gastroenteritis, DI for Viral Gastroenteritis -- Adult, Ondansetron Print Language Print Language: Chinese Discharge ED Provider: Xavier Thompson [facility] HPI General Stated complaint: stomach pain Time Seen by Provider: 01/01/24 08:36 History of Present Illness Provider Complaint: She states that she has had diarrhea for the past 1 week. Her symptoms started with n/v also. But, the vomiting resolved. She denies abdominal pain, but she has had cramping. Related Data Home Medications ?Medication ?Instructions ?Recorded ?Confirmed fluoxetine 10 mg capsule 10 mg PO DAILY Depression 08/07/20 01/01/24 cetirizine 10 mg tablet 10 mg PO DAILY Allergy symptoms 09/09/20 01/01/24 Previous Rx's ?Medication ?Instructions ?Recorded ondansetron 4 mg disintegrating 4 mg PO Q8H PRN Nausea #12 tabs 01/01/24 tablet Allergies Allergy/AdvReac Type Severity Reaction Status Date / Time Penicillins Allergy Intermediate Verified 07/26/23 12:14 sulfamethoxazole Allergy Intermediate Verified 07/26/23 12:14 [From Bactrim] trimethoprim [From Bactrim] Allergy Intermediate Verified 07/26/23 12:14 codeine Allergy Verified 07/26/23 12:14 Sulfa (Sulfonamide Allergy Verified 07/26/23 12:14 Antibiotics) [facility] Disclaimer: The information contained in this section may have been updated after the patient was seen, as this information can be updated by other users. Medical History , DIRECTOR [employer]) Urinary tract infection Anxiety Surgical History , DIRECTOR [employer]) History of wisdom tooth extraction Social History , DIRECT[employer]) Smoking Status: Never smoker alcohol intake: never current occupational status: other Travel in the last 8 weeks: None household members: family housing: house ROS Obtained: Yes All systems reviewed & no additional complaints except as documented Constitutional Constitutional: Denies chills, Denies fever(s) and Reports poor appetite ENT Ears, Nose, Mouth, and Throat: Denies dizziness and Denies sore throat Cardiovascular Cardiovascular: Denies dyspnea Respiratory Respiratory: Denies chest congestion, Denies cough and Denies dyspnea Gastrointestinal Gastrointestingal: Reports as per HPI; Denies abdominal pain Genitourinary Female Genitourinary: Denies difficulty voiding, Denies dysuria, Denies hematuria, Denies urinary frequency, Denies urinary incontinence, Denies urinary hesitancy and Denies urinary urgency Musculoskeletal Musculoskeletal: Denies arthralgias Integumentary/Breasts Skin/Breast: Denies rash Neurologic Neurologic: Denies dizziness Physical Exam General General appearance: alert and in no apparent distress Head Head exam: atraumatic and normocephalic Eye Eye exam: Present normal appearance, PERRL and EOMI ENT ENT exam: Present normal exam, normal oropharynx, mucous membranes moist, TM's normal bilaterally and normal external ear exam Neck Neck exam: Present normal inspection, full ROM and trachea midline; Absent tenderness, meningismus or lymphadenopathy Chest Chest inspection: Present normal inspection and symmetric chest wall rise; Absent tenderness, rash or abscess Respiratory Respiratory exam: Present normal lung sounds bilaterally; Absent respiratory distress, wheezes or stridor Cardiovascular Cardiovascular exam: Present regular rate and normal rhythm; Absent irregular rhythm, systolic murmur, diastolic murmur or JVD Abdominal Exam Abdominal exam: Present soft and hyperactive bowel sounds; Absent distention, tenderness, guarding, rebound, rigidity, psoas sign, obturator sign, heel tap sign, Mckinley's sign, Rovsing's sign or tenderness at McBurney's Point Extremities Exam Extremities exam: Present normal inspection and full ROM; Absent tenderness Back Exam Back exam: Present normal inspection and full ROM; Absent tenderness, CVA tenderness (R) or CVA tenderness (L) Neurological Exam Neurological exam: Present alert, oriented X3 and CN II-XII intact Psychiatric Psychiatric exam: Present normal affect and normal mood Skin Skin exam: Present warm, dry, intact and normal color Lymphatic Lymphatic Findings: no adenopathy Medical Decision Making Medical Records Medical records reviewed: No I reviewed the patient's medical records. Screening: Per USPSTF and CDC recommendations, given the prevalence of disease in our region, it is our hospital?s policy to screen for HIV and viral Hepatitis for all patients aged 18 and over and those with ongoing risk factors. Mike Inquiry Pt receiving controlled substance: No Lab Data Lab results reviewed: Yes I reviewed the patient's lab results.
[2024-01-01 09:07] LABS: UTC Influenza A Antigen Negative (Negative)
[2024-01-01 09:08] LABS: UTC Influenza B Antigen Negative (Negative)
[2024-01-01 09:14] VITALS: BP 113/89; PULSE 99; RESP 20; TEMP 37; O2SAT 99
[2024-01-01 10:50] LABS: Adenovirus F 40/41, stool Not Detected (NotDetected); Astrovirus Not Detected (NotDetected); Campylobacter Not Detected (NotDetected); Clostridium Difficile A/B, PCR Not Detected (NotDetected); Cryptosporidium Not Detected (NotDetected); Cyclospora Cayetanesis Not Detected (NotDetected); Entamoeba histolytica Not Detected (NotDetected); Enteroaggregative E coli Not Detected (NotDetected); Enteropathogenic E coli Not Detected (NotDetected); Enterotoxigenic E coli Not Detected (NotDetected); Giardia lamblia Not Detected (NotDetected); Norovirus Not Detected (NotDetected); Plesimonas Shigalloides, PCR Not Detected (NotDetected); Rotavirus A Not Detected (NotDetected); Salmonella, PCR Not Detected (NotDetected); Sapovirus Not Detected (NotDetected); Shigella Enterovasive E coli Not Detected (NotDetected); Vibrio Cholerae Not Detected (NotDetected); Vibrio, PCR Not Detected (NotDetected); Yersinia Entercolitica, PCR Not Detected (NotDetected)
[2024-01-01 14:12] LABS: Shiga-like toxin E coli Detected (NotDetected)
--- NOTE | 2024-01-01 16:10 | PC.NURSE ---
PATIENT NOTIFIED OF DIARRHEA PANEL RESULTS AT THIS TIME. PATIENT ADVISED TO INCREASE WATER INTAKE AND FOLLOW-UP WITH PCP IF NEEDED
== END 2024-01-01 09:16 | disposition home or self-care (01) ==
PROVIDERS: Emergency Provider Nurse Practitioner Family; PCP Internal Medicine Adolescent Medicine
DX: K52.9 Noninfective gastroenteritis and colitis, unspecified (principal)
CPT/HCPCS: 87507; 87804; 99213; G0381

== ENCOUNTER 2024-02-28 18:44 | Emergency (ER) | payer OTHER, SELFPAY ==
[2024-02-28 19:13] VITALS: BP 134/89; PULSE 100; RESP 16; TEMP 37; O2SAT 97; BMI 26.6
--- NOTE | 2024-02-28 19:18 | ED_ITS ---
Discharge Plan Disposition Patient Disposition: Home, Self-Care Condition: Good Prescriptions Prescriptions: New azithromycin [Zithromax] 250 mg tablet 250 mg PO UD DOSE PK Qty: 6 0RF Rx Instructions: Take two (2) tablets today, then one (1) tablet days #2 thru #5 No Action fluoxetine 10 MG capsule 10 mg PO DAILY cetirizine 10 MG tablet 10 mg PO DAILY Referrals Follow up/Referrals: Francie Boo APRN [Primary Care Provider] - See instructions Activity Restrictions/Add. Instructions Additional Instructions/Restrictions: Drink plenty of fluids. Take tylenol for pain or fever. Take the medications as directed. Follow up with your regular doctor. GO TO THE ER FOR ANY WORSENING SYMPTOMS Clinical Impressions Clinical Impression: Otitis media Sinusitis Qualifiers: Sinusitis location: unspecified location Chronicity: unspecified Qualified Code(s): J32.9 - Chronic sinusitis, unspecified Instructions Patient Instructions: Sinusitis, DI for Sinusitis Print Language Print Language: Sami Discharge ED Provider: Xavier Thompson [facility] General Stated complaint: ear pain Mode of Arrival: Ambulatory Source of Information: Patient Time Seen by Provider: 02/28/24 19:10 Description of Symptoms (Recalled from Triage Doc. by RN): EAR DISCOMFORT HEENT Symptoms (Recalled from RN notes): Yes Resp Symptoms (Recalled from RN notes): No Skin Symptoms (Recalled from RN notes): No MS Symptoms (Recalled from RN notes): No Functional Status (Recalled from RN notes): WNL Related Data Home Medications ?Medication ?Instructions ?Recorded ?Confirmed fluoxetine 10 mg capsule 10 mg PO DAILY Depression 08/07/20 02/28/24 cetirizine 10 mg tablet 10 mg PO DAILY Allergy symptoms 09/09/20 02/28/24 Previous Rx's ?Medication ?Instructions ?Recorded azithromycin 250 mg tablet 250 mg PO UD DOSE PK #6 tabs 02/28/24 (Zithromax) Allergies Allergy/AdvReac Type Severity Reaction Status Date / Time Penicillins Allergy Intermediate Verified 07/26/23 12:14 sulfamethoxazole (From Allergy Intermediate Verified 07/26/23 12:14 Bactrim) trimethoprim (From Bactrim) Allergy Intermediate Verified 07/26/23 12:14 codeine Allergy Verified 07/26/23 12:14 Sulfa (Sulfonamide Allergy Verified 07/26/23 12:14 Antibiotics) Worker's Comp Is this a Worker's Comp case?: No [facility] Disclaimer: The information contained in this section may have been updated after the patient was seen, as this information can be updated by other users. 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[employer]) Urinary tract infection Anxiety Surgical History , DIRECT[employer]) History of wisdom tooth extraction Social History , DIRECT[employer]) Smoking Status: Never smoker alcohol intake: never current occupational status: other Travel in the last 8 weeks: None household members: family housing: house Have you lived/traveled outside [place] in past 30 days?: No Contact w/someone who lives/traveled outside [place] past 30 days?: No Exposure to someone with infectious disease in past 14 days?: No Do you have a fever (greater than 100.4 F or 38 C)?: No Have you tested positive for COVID-19: No Exposed to someone with COVID-19 in past 14 days?: No Do you have a sore throat?: Yes Do you have a cough?: Yes Do you have any weakness?: Yes Do you have any diarrhea?: Yes Are you experiencing any unusual bleeding?: No Do you have any muscle aches/pain?: No Do you have any abdominal pain?: No Are you experiencing loss of taste or smell?: No ROS Obtained: Yes All systems reviewed & no additional complaints except as documented Constitutional Constitutional: Reports chills and Reports fever(s) Eyes Eyes: Denies eye discharge ENT Ears, Nose, Mouth, and Throat: Reports as per HPI Cardiovascular Cardiovascular: Denies chest pain Respiratory Respiratory: Denies chest congestion and Reports cough Gastrointestinal Gastrointestingal: Reports nausea; Denies abdominal pain, constipation, cramping, diarrhea or vomiting Musculoskeletal Musculoskeletal: Denies arthralgias Integumentary/Breasts Skin/Breast: Denies rash Neurologic Neurologic: Denies paresthesias Physical Exam General General appearance: alert and in no apparent distress Head Head exam: atraumatic, normocephalic and normal inspection Eye Eye exam: Present normal appearance, PERRL and EOMI ENT ENT exam: Present normal exam, normal oropharynx, mucous membranes moist, TM's normal bilaterally and normal external ear exam Neck Neck exam: Present normal inspection, full ROM and trachea midline; Absent meningismus or lymphadenopathy Chest Chest inspection: Present normal inspection and symmetric chest wall rise; Absent tenderness Respiratory Respiratory exam: Present normal lung sounds bilaterally; Absent respiratory distress Cardiovascular Cardiovascular exam: Present regular rate and normal rhythm; Absent JVD Abdominal Exam Abdominal exam: Present soft and normal bowel sounds; Absent distention, tenderness or guarding Extremities Exam Extremities exam: Present normal inspection, full ROM and normal capillary refi ll; Absent calf tenderness Back Exam Back exam: Present normal inspection; Absent tenderness Neurological Exam Neurological exam: Present alert and oriented X3 Psychiatric Psychiatric exam: Present normal affect and normal mood Skin Skin exam: Present warm, dry, intact and normal color Lymphatic Lymphatic Findings: no adenopathy Medical Decision Making Medical Records Medical records reviewed: No I reviewed the patient's medical records. Screening: Per USPSTF and CDC recommendations, given the prevalence of disease in our region, it is our hospital?s policy to screen for HIV and viral Hepatitis for all patients aged 18 and over and those with ongoing risk factors. Mike Inquiry Pt receiving controlled substance: No Vital Signs: 02/28/24 19:13 Temperature 98.6 F Temperature Source Oral Pulse Rate [Left Brachial] 100 H Respiratory Rate 16 Blood Pressure [Left Arm] 134/89 Blood Pressure Mean [Left Arm] 104 02 Sat by Pulse Oximetry 97
[2024-02-28 19:46] VITALS: BP 134/89; PULSE 100; RESP 16; TEMP 37
== END 2024-02-28 19:53 | disposition home or self-care (01) ==
PROVIDERS: Emergency Provider Nurse Practitioner Family; PCP Nurse Practitioner Family
DX: J32.9 Chronic sinusitis, unspecified (principal); H66.93 Otitis media, unspecified, bilateral; R50.9 Fever, unspecified; H92.03 Otalgia, bilateral; R05.9 Cough, unspecified
CPT/HCPCS: 99212; G0381